=== PATIENT | female | born 1990 | race Caucasian/White ===

== ENCOUNTER 2020-09-02 17:51 | Emergency (ER) | payer OTHER, SELFPAY ==
[2020-09-02 17:52] VITALS: BP 176/96; PULSE 88; RESP 19; TEMP 36.7; O2SAT 100; BMI 51.0
--- NOTE | 2020-09-02 18:14 | HMH.EDGENADL ---
ED Disposition Clinical Impression: Thrombophlebitis Leg wound, right Qualifiers: Encounter type: initial encounter Qualified Code(s): S81.801A - Unspecified open wound, right lower leg, initial encounter Disposition: Home, Self-Care Condition on Discharge: Good Instructions: DI for Cellulitis -- Adult, DI for Superficial Thrombophlebitis Additional Instructions: You have been evaluated for wounds and swelling on your right lower leg. This is likely superficial thrombophlebitis or cellulitis. Please take Keflex as prescribed. You have been given a one-time dose of Lovenox. It is important that you follow-up for outpatient lower extremity duplex ultrasound within the next 48 hours. Call for your appointment. Follow-up with your primary care doctor. Return to the emergency department for any new or worsening symptoms, pain, fevers, other concerns. Referrals: Leah Oneill [Primary Care Provider] - Time of Disposition: 19:40 - Critical Care Critical Care Time: No Attestation: On 09/02/20, the high probability of a clinically significant, sudden or life threatening deterioration of the following system(s) required my full and direct attention, intervention and personal management. The time I documented below is in addition to time spent performing reported procedures but includes the following listed in this critical care notation. Medical Decision Making - Medical Records Medical records reviewed: Yes: I reviewed the patient's medical records. - Gabe Inquiry Pt receiving controlled substance: No Vital Signs: 09/02/20 17:52 09/02/20 18:31 Temperature 98.1 F Temperature Source Oral Pulse Rate 80 Pulse Rate [Left Radial] 88 Respiratory Rate 19 Blood Pressure 140/81 Blood Pressure [Right Arm] 176/96 H Blood Pressure Mean 105 Blood Pressure Mean [Right Arm] 122 Blood Pressure Source [Right Arm] Automatic Cuff Blood Pressure Position [Right Arm] Sitting 02 Sat by Pulse Oximetry 100 99 Oxygen Delivery Method Room Air - Lab Data Lab Results 09/02/20 18:56: WBC 9.5, RBC 4.99, Hgb 14.4, Hct 43.1, MCV 86.4, MCH 28.9, MCHC 33.5, RDW 14.2, Plt Count 204, MPV 10.0, Neut % (Auto) 68.1, Lymph % (Auto) 24.0, [place] % (Auto) 4.5, Eos % (Auto) 2.9, Baso % (Auto) 0.5, Neut # (Auto) 6.4, Lymph # (Auto) 2.3, [place] # (Auto) 0.4, Eos # (Auto) 0.3, Baso # (Auto) 0.1 09/02/20 18:56: D-Dimer 0.56 H 09/02/20 18:56: Sodium 133 L, Potassium 4.7, Chloride 104, Carbon Dioxide 26, Anion Gap 7.7, BUN 10, Creatinine 0.70, Estimated Creat Clear 104, Estimated GFR 97, Est GFR ( Amer) 117, Glucose 108 H, Calcium 9.0, Total Bilirubin 0.6, AST 63 H, ALT 82 H, Alkaline Phosphatase 93, Total Protein 7.7, Albumin 4.2, Globulin 3.5 H, Albumin/Globulin Ratio 1.2 Result diagrams: 09/02/20 18:56 09/02/20 18:56 Medical Decision Narrative: In summary this is a 30-year-old female with history of IV drug use presenting to the emergency department with 2 areas of red, painful swelling on her right lower leg. No acute distress on arrival. Vital signs within normal limits. Concern for superficial phlebitis, folliculitis. Cannot exclude more serious deep or superficial venous thrombus. Will obtain CBC, CMP, D-dimer. Initial laboratory results show white blood cell count within normal limits. AST and ALT are slightly elevated. D-dimer is slightly elevated at 0.56. Cannot definitively exclude a superficial or deep venous thrombus of the right lower extremity. Patient given 40 mEq subcu Lovenox. Scheduled for an outpatient lower extremity ultrasound to be completed in the next 48 hours. Patient counseled on anti-inflammatories and warm compresses. Recommended to use topical antibiotic, keflex. Stable for discharge. General Adult HPI - General Stated complaint: right leg pain Time Seen by Provider: 09/02/20 18:14 - History of Present Illness HPI narrative: 30-year-old female presenting to the emergency department w
[2020-09-02 18:31] VITALS: BP 140/81; PULSE 80; O2SAT 99
[2020-09-02 19:16] LABS: Basophils # 0.1 K/mm3 (0-0.2); Basophils % 0.5 % (0.1-2.0); Eosinophils # 0.3 K/mm3 (0.0-0.4); Eosinophils % 2.9 % (0.1-12.0); Hematocrit 43.1 % (37.0-47.0); Hemoglobin 14.4 g/dL (12.2-16.2); Lymphocytes # 2.3 K/mm3 (0.7-4.5); Mean Corpuscular HGB Conc 33.5 g/dL (31.8-35.4); Mean Corpuscular Hemoglobin 28.9 pg (27.0-31.2); Mean Corpuscular Volume 86.4 fl (81-99); Monocytes # 0.4 K/mm3 (0.1-1.0); Monocytes % 4.5 % (1.7-9.3); Neutrophils # 6.4 K/mm3 (1.8-7.8); Neutrophils % 68.1 % (37.0-80.0); Platelet Count 204 K/mm3 (142-424); Red Blood Count 4.99 M/mm3 (4.20-5.40); Red Cell Distribution Width 14.2 % (11.5-17.5); White Blood Count 9.5 K/mm3 (4.8-10.8)
[2020-09-02 19:20] LABS: Alanine Aminotransferase 82 U/L (12-78); Albumin Level 4.2 g/dl (3.5-5.0); Albumin/Globulin Ratio 1.2 (1.1-1.8); Alkaline Phosphatase 93 U/L (38-126); Anion Gap 7.7 mEq/L (5-15); Aspartate Amino Transferase 63 U/L (14-36); Bilirubin,Total 0.6 mg/dl (0.2-1.3); Blood Urea Nitrogen 10 mg/dl (7-17); Carbon Dioxide 26 mmol/L (22.0-30.0); Chloride 104 mmol/L (98-107); Creatinine Clearance Estimated 104 mL/min (50-200); Estimated Glomerular Filt Rate 97 ml/min (>60); GFR (African American) 117 ML/MIN (>60); Globulin 3.5 g/dL (1.3-3.2); Glucose 108 mg/dl (74-100); Potassium 4.7 mmoL/L (3.5-5.1); Sodium 133 mmol/L (136-145); Total Protein,Serum 7.7 g/dl (6.3-8.2)
[2020-09-02 19:24] LABS: D-Dimer 0.56 ug/mL (0.0-0.5)
[2020-09-02 19:56] VITALS: BP 139/79; PULSE 82; RESP 16; TEMP 36.7; O2SAT 99
== END 2020-09-02 19:57 | disposition home or self-care (01) ==
PROVIDERS: Emergency Provider Emergency Medicine; PCP Nurse Practitioner Family
DX: I80.3 Phlebitis and thrombophlebitis of lower extremities, unspecified (principal)
CPT/HCPCS: 36415; 80053; 85025; 85378; 96372; 99282

== ENCOUNTER → 2020-09-04 10:42 | Outpatient (CLI) | payer OTHER, SELFPAY ==
--- NOTE | 2020-09-04 | CA_ITS ---
APPROVED REPORT Right Lower Extremity Venous Study for Dialer: Itzel Alvares, [employer]ITY [employer]ST[employer]ER Indications Lower Extremity Pain: Right Lower Extremity Edema: Bilateral Current Smoker Risk Factors Pt shot up, IV drugs, in this leg 5 years ago, redness and edema off and on since. Area is red, hot, and hard. Vein Imaging CFV (R): compressive, spontaneous, phasic, augmentation SFJ (R): compressive, spontaneous, phasic, augmentation FEM (R): compressive, spontaneous, phasic, augmentation POP (R): compressive, spontaneous, phasic, augmentation DFV (R): compressive, spontaneous, phasic, augmentation PTV (R): compressive, spontaneous, phasic, augmentation GSV (R): compressive, spontaneous, phasic, augmentation SSV (R): compressive, spontaneous, phasic, augmentation Peroneals (R):compressive, spontaneous, phasic, augmentation GAS (R): compressive, spontaneous, phasic, augmentation Findings RLE negative for DVT/SVT. Vessels fully compressible. Calf veins difficiult to image. Conclusion RLE negative for DVT/SVT. Vessels fully compressible. Calf veins difficiult to image. Electronically signed by : Camilo Souza MD 09/04/2020 17:41:51
== END ==
PROVIDERS: PCP Nurse Practitioner; Visit Provider Emergency Medicine
DX: M79.661 Pain in right lower leg (principal)
CPT/HCPCS: 93971

== ENCOUNTER 2021-05-13 10:40 | Emergency (ER) | payer OTHER, SELFPAY ==
[2021-05-13 12:03] VITALS: BP 146/75; PULSE 79; RESP 18; TEMP 36.8; O2SAT 100; BMI 49.2
--- NOTE | 2021-05-13 12:05 | HMH.EDUTC ---
[facility] [place] Clinical Impression: Viral syndrome, Exposure to COVID-19 virus Otitis media Qualifiers: Otitis media type: suppurative Chronicity: acute Laterality: bilateral Recurrence: non-recurrent Spontaneous tympanic membrane rupture: without spontaneous rupture Qualified Code(s): H66.003 - Acute suppurative otitis media without spontaneous rupture of ear drum, bilateral Sinusitis Qualifiers: Sinusitis location: unspecified location Chronicity: acute Recurrence: non-recurrent Qualified Code(s): J01.90 - Acute sinusitis, unspecified Disposition: Home, Self-Care Condition on Discharge: Good Instructions: Middle Ear Infection, DI for Sinusitis, DI for COVID-19 (Suspected or Confirmed ), Preventing the Spread of Coronavirus Discharge Instructions Additional Instructions: Drink plenty of fluids. Take tylenol or ibuprofen for pain or fever. Take the medications as directed. Follow up with your regular doctor. GO TO THE ER FOR ANY WORSENING SYMPTOMS Quarantine until you know the results of your covid-19 test. Notify your school or workplace of your results and follow their instructions regarding return to work/school. Prescriptions: Brompheniramine/Pseudoephed/Dm [Bromfed Dm Cough Syrup] 5 ml PO Q6HP PRN #240 ml PRN Reason: Cough Transmission Status: Received by [facility] Amoxicillin [Amoxicillin 875MG Tab] 875 mg PO Q12H #20 tab Transmission Status: Received by [facility] methylPREDNISolone [Medrol] 4 mg PO DIRECTED 6 Days #21 packet Transmission Status: Received by [facility] Referrals: Kyleigh Winchester APRN [Primary Care Provider] - Forms: Work/School Release Time of Disposition: 12:21 Medical Decision Making - Medical Records Medical records reviewed: No: I reviewed the patient's medical records. - Gabe Inquiry Pt receiving controlled substance: No Vital Signs: 05/13/21 12:03 05/13/21 12:38 Temperature 98.3 F 98.3 F Temperature Source Oral Oral Pulse Rate 79 Pulse Rate [Right Brachial] 79 Respiratory Rate 18 18 Blood Pressure 146/75 H Blood Pressure [Right Arm] 146/75 H Blood Pressure Mean [Right Arm] 98 Blood Pressure Source Automatic Cuff Blood Pressure Source [Right Arm] Automatic Cuff 02 Sat by Pulse Oximetry 100 Oxygen Delivery Method Room Air Room Air - Lab Data Lab results reviewed: Yes: I reviewed the patient's lab results. [facility] [place] H[place] - General Stated complaint: ear pain,cough,sinus pressure Time Seen by Provider: 05/13/21 12:05 - History of Present Illness Provider Complaint: She states that for the past 2 days she had bilateral ear pain and sinus congestion. She gets ear infections kind of frequently and that is what this feels like to her. She denies any known covid-19 exposure. She has had the first shot of the 2 shot regimen of the pfizer vaccine. She was due to get the 2nd one last Thursday, but she had a cough and it was recommended to be held until she was better. - Related Data Previous Rx's Medication Instructions Recorded Amoxicillin [Amoxicillin 875MG 875 mg PO Q12H #20 tab 05/13/21 Tab] Brompheniramine/Pseudoephed/Dm 5 ml PO Q6HP PRN #240 ml 05/13/21 [Bromfed Dm Cough Syrup] methylPREDNISolone [Medrol] 4 mg PO DIRECTED 6 Days #21 05/13/21 packet Allergies Allergy/AdvReac Type Severity Reaction Status Date / Time No Known Allergies Allergy Verified 09/02/20 18:16 [facility] History - Hepatitis A Screen Attestation statement:: This patient has been screened for Hepatitis A risk factors. I have reviewed the patient's past medical history: Yes ROS Obtained: Yes All systems reviewed & no additional complaints - Constitutional Constitutional: Reports as per HPI - Eyes Eyes: Denies eye discharge - ENT Ears, Nose, Mouth, and Throat: Reports as per HPI - Cardiovascular Cardiovascular: Denies chest pain - Respiratory Respiratory: Reports chest conge
[2021-05-13 12:38] VITALS: BP 146/75; PULSE 79; RESP 18; TEMP 36.8; O2SAT 100
== END 2021-05-13 12:30 | disposition home or self-care (01) ==
PROVIDERS: Emergency Provider Nurse Practitioner Family; PCP Nurse Practitioner
DX: B34.9 Viral infection, unspecified; Z20.822 Contact with and (suspected) exposure to COVID-19
CPT/HCPCS: 99202; C9803; G0463; U0003; U0005

== ENCOUNTER 2021-06-19 16:00 | Outpatient (RCR) | payer OTHER, SELFPAY | END 2021-06-19 17:00 | disposition home or self-care (01) | LOC: PT 16:00 | PROVIDERS: PCP Nurse Practitioner; Visit Provider Nurse Practitioner Family | DX: I89.0 Lymphedema, not elsewhere classified (principal) | CPT/HCPCS: 97140; 97162; 97164; 97760 ==